=== PATIENT | female | born 1950 | race Caucasian/White ===

== ENCOUNTER 2017-11-29 14:24 | Emergency (ER) | payer OTHER ==
[2017-11-29] MEDS ORDERED: OXYMETAZOLINE 30 ML NASAL SPRAY ONE (14:30)
[2017-11-29] MEDS ORDERED: OXYMETAZOLINE 30 ML NASAL SPRAY EACHNARE ONE (14:35)
--- NOTE | 2017-11-29 14:38 | EDPHY ---
H & P Source: Patient Exam Limitations: No limitations - Medical/Surgical History Hx Asthma: No Hx Chronic Respiratory Disease: No Hx Diabetes: No Hx Cardiac Disease: No Hx Renal Disease: No Hx Cirrhosis: No Hx Alcoholism: No - Family History Significant Family History: No pertinent family hx - Social History Smoking Status: Never smoked Alcohol Use: Sober Drug Use: None Time Seen by Provider: 11/29/17 14:36 HPI/ROS: CHIEF COMPLAINT: Epistaxis HISTORY OF PRESENT ILLNESS: The patient is a 67-year-old female who is not anticoagulated who comes to the emergency department who has been complaining of bloody nose that is been intermittent for the last few hours. It is primarily from the right naris. No fever. No trauma. No recent illness. No vomiting. No chest pain or shortness of breath. REVIEW OF SYSTEMS: Constitutional: denies: chills, fever, recent illness, recent injury EENTM: See HPI Respiratory: denies: cough, shortness of breath Cardiac: denies: chest pain, irregular heart rate, lightheadedness, palpitations Gastrointestinal/Abdominal: denies: abdominal pain, diarrhea, nausea, vomiting, blood streaked stools Genitourinary: denies: dysuria, frequency, hematuria, pain Musculoskeletal: denies: joint pain, muscle pain Skin: denies: lesions, rash, jaundice, bruising Neurological: denies: headache, numbness, paresthesia, tingling, dizziness, weakness Hematologic/Lymphatic: denies: blood clots, easy bleeding, easy bruising Immunologic/allergic: denies: HIV/AIDS, transplant EXAM: GENERAL: Well-appearing, well-nourished and in no acute distress. HEAD: Atraumatic, normocephalic. EYES: Pupils equal round and reactive to light, extraocular movements intact, sclera anicteric, conjunctiva are normal. ENT: Anterior right septal epistaxis, TMs normal, oropharynx clear without exudates. Moist mucous membranes. NECK: Normal range of motion, supple without lymphadenopathy or JVD. LUNGS: Breath sounds clear to auscultation bilaterally and equal. No wheezes rales or rhonchi. HEART: Regular rate and rhythm without murmurs, rubs or gallops. ABDOMEN: Soft, nontender, normoactive bowel sounds. No guarding, no rebound. No masses appreciated. BACK: No CVA tenderness, no spinal tenderness, step-offs or deformities EXTREMITIES: Normal range of motion, no pitting or edema. No clubbing or cyanosis. NEUROLOGICAL: Cranial nerves II through XII grossly intact. Normal speech, normal gait. 5/5 strength, normal movement in all extremities, normal sensation PSYCH: Normal mood, normal affect. SKIN: Warm, dry, normal turgor, no visible rashes or lesions. (Duane Silverman) Constitutional: Initial Vital Signs Temperature (C) 36.4 C 11/29/17 14:36 Heart Rate 96 11/29/17 14:36 Respiratory Rate 18 11/29/17 14:36 Blood Pressure 113/85 H 11/29/17 14:36 O2 Sat (%) 94 11/29/17 14:36 O2 Delivery Mode Room Air Allergies/Adverse Reactions: No Known Allergies Allergy (Unverified 11/29/17 14:35) Home Medications: Medication Instructions Recorded Cymbalta 11/29/17 Wellbutrin 100mg (*) 11/29/17 traZODone 11/29/17 Medical Decision Making ED Course/Re-evaluation: The patient seems to have stopped bleeding with Afrin and nasal clamp. I placed a TXA soaked cotton ball into her right nares. She tolerated this well. We will observe. Care transferred to Dr. Abner Cintron. If she continues to do well while prepare paperwork for discharge and follow up with ENT. ( Duane Silverman) On recheck after TXA cotton ball placed the patient has good hemostasis. Observed her for approximately another 0.5 hr thereafter and she feels comfortable with discharge home. Counseled patient regarding anterior epistaxis prior to discharge home. She and her understand the plan to pull the Eve monitor 24 hr. They will follow up with ENT for any ongoing concerns and will return emergency department if she has any significant recurrence of epistaxis despite customary instructions (Abner Cintron) Differential Diagnosis: Partial list of the Differential diagnosis considered include but were not limited to; anterior epistaxis, posterior epistaxis and although unlikely based on the history and physical exam, I also considered trauma, infection. ( Duane Silverman) - Data Points Medications Given: Discontinued Medications Oxymetazoline HCl (Afrin Nasal [place]) 2 sprays EACHNARE EDNOW ONE Stop: 11/29/17 14:36 Last Admin: 11/29/17 14:35 Dose: 2 spray Tranexamic Acid (Cyklokapron) 500 mg TP EDNOW ONE Stop: 11/29/17 14:48 Last Admin: 11/29/17 14:52 Dose: 500 mg Departure - Departure Disposition: Home, Routine, Self-Care Clinical Impression: Acute anterior epistaxis Condition: Fair Instructions: Nosebleed (ED) Additional Instructions: Diagnosis: Anterior epistaxis Plan: Home Humidifier Do not blow your nose for the next few days Leave the medication soaked cotton ball in your nostril for the next 24 hr and then remove. If you have rebleeding, bent forward over a bowl or toilet and pinch the upper bridge of the nose firmly for 20 min or more. Return to the emergency department for any recurrent nose bleed the last for 20 min or more despite above plan Follow-up with Dr. Larson, ENT specialist for any further symptoms or concern Referrals: Lonnie Larson MD [Medical Doctor] - As per Instructions
[2017-11-29] MEDS ORDERED: TRANEXAMIC ACID 1,000 MG/10 ML VIAL TP ONE (14:47)
[2017-11-29 17:08] VITALS: BP 142/78
== END 2017-11-29 16:15 | disposition home or self-care (01) ==
LOC: CED 14:24
PROC: 2Y41X5Z Packing of Nasal Region using Packing Material (ICD-10-PCS; principal; 2017-11-29)
DX: R04.0 Epistaxis (principal)

== ENCOUNTER → 2018-07-12 | Outpatient (CLI) | payer OTHER | LOC: CIMAGING 09:07 | PROVIDERS: ATTEND Physician Assistant | DX: M25.552 Pain in left hip (principal) | CPT/HCPCS: 72190-PO ==

== ENCOUNTER 2018-10-06 22:21 | Emergency (ER) | payer OTHER ==
--- NOTE | 2018-10-06 22:33 | EDPHY ---
H & P Time Seen by Provider: 10/06/18 22:33 HPI/ROS: HPI CHIEF COMPLAINT: Right leg laceration. HISTORY OF PRESENT ILLNESS: 68-year-old female, she presents to the emergency room with a right lower extremity leg laceration. She struck this on a magazine rack. The magazine rack was metal. She denies any other area of injury. She has a v-shaped laceration 3 cm x 4 cm. It is on her anterior midline right lower do. Distally she is neurovascular intact with good distal pulse, good cap refill. Patient reports to me her tetanus shot is up-to-date. Past Medical History: Depression. Past Surgical History: Knee surgery, breast abscess Social History: Denies drugs alcohol tobacco. Family History: Noncontributory ROS REVIEW OF SYSTEMS: 10 Systems were reviewed and negative with the exception of the elements mentioned in the history of present illness. Exam Constitutional triage nursing summary reviewed, vital signs reviewed, awake/ alert. Eyes normal conjunctivae and sclera, EOMI, PERRLA. HENT normal inspection, atraumatic, moist mucus membranes, no epistaxis, neck supple/ no meningismus, no raccoon eyes. Respiratory clear to auscultation bilaterally, normal breath sounds, no respiratory distress, no wheezing. Cardiovascular rate normal, regular rhythm, no murmur, no edema, distal pulses normal. Gastrointestinal soft, non-tender, no rebound, no guarding, normal bowel sounds, no distension, no pulsatile mass. Genitourinary no CVA tenderness. Musculoskeletal no midline vertebral tenderness, full range of motion, no calf swelling, no tenderness of extremities, no meningismus, good pulses, neurovascularly intact. Right Lower Extremity: Distally right lower extremity neurovascular intact with good distal pulse, good cap refill. Sensation intact. No obvious tendon injury Skin V-shaped laceration approximately 3 cm x 4 cm right lower anterior Do. Neurologic awake, alert and oriented x 3, AAOx3, moves all 4 extremities equally, motor intact, sensory intact, CN II-XII intact, normal cerebellar, normal vision, normal speech. Psychiatric normal mood/affect. Heme/Lymph/Immune no lymphadenopathy. Differential Diagnosis: Includes but is not limited to in a particular order soft tissue injury, leg laceration, bony abnormality, tendon injury. Medical Decision Making: Plan for this patient x-ray right tib-fib to rule out fracture, or deep structure injury or foreign body. Patient will require sutures. Patient's tetanus shot is up-to-date. Will copiously irrigate her incomplete her wound. Re-evaluation: Laceration Repair Procedure: Verbal Consent was obtained, Under sterile conditions, The patient had lidocaine with epinephrine used approximately 7ccs to local anesthetize the Right Anterior tib/fib 3CM x 4CM V shaped, Laceration. The wound was copiously irrigated with sterile fluid, the wound was explored for foreign bodies there were none visualized, the wound was explored with a sterile glove to the base. There are no deep structures involved, including no arterial injury. TWELEVE 5.O PROLENE interrupted Sutures were placed in this patient's laceration. She had good close approximation of the wound edges. She Tolerated this well. Keflex first dose here in the ER. Keflex for home. X-ray of the right tib-fib was reviewed no evidence of acute fracture. There is a soft tissue wound present on the x-ray no foreign bodies visualized and no bony fracture. Patient tolerated repair very well. She understands elevate her leg, cool compresses, watch for signs of infection This includes swelling, redness, drainage, pus Keep the wound clean, dry and protected. Return to the emergency room if worsening symptoms questions or concerns. Source: Patient - Personal History Tetanus Vaccine Date: within 10 yrs - Medical/Surgical History Hx Asthma: No Hx Chronic Respiratory Disease: No Hx Diabetes: No Hx Cardiac Disease: No Hx Renal Disease: No Hx Cirrhosis: No Hx Alcoholism: No Other PMH: breast abscess, knee surg, depression - Social History Smoking Status: Never smoked Constitutional: Initial Vital Signs Temperature (C) 36.8 C 10/06/18 22:32 Heart Rate 83 10/06/18 22:32 Respiratory Rate 16 10/06/18 22:32 Blood Pressure 120/69 10/06/18 22:32 O2 Sat (%) 94 10/06/18 22:32 O2 Delivery Mode Room Air Allergies/Adverse Reactions: No Known Allergies Allergy (Unverified 10/06/18 22:32) Home Medications: Medication Instructions Recorded Cymbalta 11/29/17 Wellbutrin 100mg (*) 11/29/17 traZODone 11/29/17 Cbd Oil 10/06/18 Cephalexin [Keflex] 500 mg PO Q6H #28 cap 10/06/18 Medical Decision Making - Data Points Medications Given: Discontinued Medications Cephalexin (Keflex 500 Mg Prepack#4) 1 btl TAKEHOME EDNOW ONE PRN Reason: Protocol Stop: 10/06/18 22:47 Last Admin: 10/06/18 22:53 Dose: 1 btl Cephalexin HCl (Keflex) 500 mg PO EDNOW ONE PRN Reason: Protocol Stop: 10/06/18 22:47 Last Admin: 10/06/18 22:53 Dose: 500 mg Departure - Departure Disposition: Home, Routine, Self-Care Clinical Impression: Laceration Condition: Good Instructions: Cephalexin (By mouth), Care For Your Stitches (ED), Laceration ( ED) Additional Instructions: 1. Your sutures need to be removed in 12 to 14 days. 2. Keep your laceration clean, dry, and protected. 3. Warm soapy water is fine on it in 24 hours. 4. Watch for signs of infection, redness, swelling, pain, drainage. 5. Return to the ER if worsening symptoms, fever, not going well, questions/ concerns. Referrals: Patient,NotPresent [Primary Care Provider] - As per Instructions Prescriptions: Cephalexin [Keflex] 500 mg PO Q6H #28 cap
[2018-10-06] MEDS ORDERED: CEPHALEXIN 500MG PREPACK#4 BTL TAKEHOME ONE (22:46)
[2018-10-06] MEDS ORDERED: CEPHALEXIN 500 MG CAP PO ONE (22:46)
[2018-10-06 23:36] VITALS: BP 122/66
== END 2018-10-06 23:36 | disposition home or self-care (01) ==
LOC: CED 22:21
PROC: 0HQKXZZ Repair Right Lower Leg Skin, External Approach (ICD-10-PCS; principal; 2018-10-06)
DX: S81.811A Laceration without foreign body, right lower leg, initial encounter (principal); W22.8XXA Striking against or struck by other objects, initial encounter
CPT/HCPCS: 73590-PO; 99283-ER